=== PATIENT | female | born 1980 ===

== ENCOUNTER 2022-07-27 18:04 | Inpatient (IN) | payer OTHER ==
[~2022-07-27] VITALS: Ht 170.2 cm; Wt 110.7 kg
[2022-07-27] MEDS ORDERED: MAGNESIUM SULFATE 1GM/100ML 200 ML IV ONE (18:30)
[2022-07-27] MEDS ORDERED: PROMETHAZINE HCL 25 MG/ML 1ML ONE (18:31)
[2022-07-27] MEDS ORDERED: MAGNESIUM SULFATE 1GM/100ML 100 ML IV STA (18:31)
[2022-07-27] MEDS ORDERED: AMIODARONE 450mg/250ml AE 250 ML IV ONE (18:38)
[2022-07-27] MEDS ORDERED: ADENOSINE 6 MG/2 ML INJ IV ONE ×2 (18:45)
[2022-07-27] MEDS ORDERED: AMIODARONE HCL 150 MG in D5W 5% 100 ML IV ONE (18:45)
[2022-07-27] MEDS ORDERED: AMIODARONE 450mg/250ml AE 250 ML IV SCH (19:00)
[2022-07-27] MEDS ORDERED: PROMETHAZINE HCL 25 MG/ML 1ML IV ONE (19:30)
[2022-07-27] MEDS ORDERED: SODIUM CHLORIDE 0.9% 1,000 ML IV ONE (19:30)
[2022-07-27] MEDS ORDERED: KETAMINE HCL 10 ML ONE (19:37)
[2022-07-27] MEDS ORDERED: KETAMINE 50mg/ML 10ml Vial (500mg/10ml) IV ONE (19:45)
[2022-07-27 19:54] LABS: Urine Bacteria FEW /hpf (None Seen); Urine Blood Negative /uL (Negative); Urine Specific Gravity 1.004 (1.001-1.035); Urine WBC <1 /hpf (0 - 5)
[2022-07-27 20:18] LABS: Basophils # (auto) 0.1 10 ^3/uL (0-0.2); Basophils % (auto) 1.3 % (0.0-2.0); Eosinophils # (auto) 0 10 ^3/uL (0-0.8); Eosinophils % (auto) 0.6 % (0.0-7.0); Hematocrit 31.6 % (36.0-46.0); Hemoglobin 9.7 g/dL (12.2-16.2); Lymphocytes # (auto) 2.4 10 ^3/uL (0.4-5.4); Lymphocytes % (auto) 33.3 % (10.0-50.0); Mean Corpuscular Hemoglobin 17.7 pg (28.0-32.0); Mean Corpuscular Hgb Conc. 30.6 g/dL (32.0-36.0); Mean Corpuscular Volume 57.7 fL (80.0-100.0); Monocytes # (auto) 0.8 10 ^3/uL (0-1.3); Monocytes % (auto) 11.4 % (0.0-12.0); Neutrophils # (auto) 3.9 10 ^3/uL (1.6-8.6); Neutrophils % (auto) 53.4 % (37.0-80.0); Nucleated Red Blood Cells % 0.2 %; Red Blood Cells 5.49 10^6/uL (4.0-5.20); Red Cell Distribution Width 18.3 % (11.8-14.3); White Blood Cell 7.3 10^3/uL (4.4-10.8)
[2022-07-27 20:34] LABS: Albumin 3.8 g/dL (3.4-5.0); BUN/Creatinine Ratio 14.1; Calcium 9.1 mg/dL (8.5-10.1)
[2022-07-27 20:38] LABS: Bilirubin, Total 0.4 mg/dL (0.2-1.0)
[2022-07-27] MEDS ORDERED: MORPHINE SULFATE INJ 2 MG/ml SYRG IV PRN ×2 (21:45→23:00)
[2022-07-27] MEDS ORDERED: SODIUM CHLORIDE 0.9% 1,000 ML IV SCH (21:45)
[2022-07-27] MEDS ORDERED: DOCUSATE SOD 100 MG CAP PO PRN (21:45)
[2022-07-27] MEDS ORDERED: HYDROcodone-ACET 5/325MG TAB PO PRN (21:45)
[2022-07-27] MEDS ORDERED: AMIODARONE HCL 200 MG TAB PO SCH (22:00)
[2022-07-27] MEDS ORDERED: NITROGLYCERIN 0.4 MG SL TAB SL PRN (23:00)
[2022-07-28] MEDS: AMIODARONE 450mg/250ml AE 250 ML IV SCH ×2 (00:30→16:47)
[2022-07-28 06:12] LABS: Basophils # (auto) 0 10 ^3/uL (0-0.2); Eosinophils # (auto) 0 10 ^3/uL (0-0.8); Eosinophils % (auto) 0.1 % (0.0-7.0); Hemoglobin 8.6 g/dL (12.2-16.2); Lymphocytes # (auto) 1.6 10 ^3/uL (0.4-5.4); Monocytes # (auto) 0.8 10 ^3/uL (0-1.3); Monocytes % (auto) 12.6 % (0.0-12.0); Nucleated Red Blood Cells % 0.1 %
[2022-07-28 06:15] LABS: Basophils % (auto) 0.5 % (0.0-2.0); Hematocrit 28.7 % (36.0-46.0); Lymphocytes % (auto) 24.2 % (10.0-50.0); Mean Corpuscular Hemoglobin 17.9 pg (28.0-32.0); Mean Corpuscular Volume 59.6 fL (80.0-100.0); Neutrophils # (auto) 4.1 10 ^3/uL (1.6-8.6); Neutrophils % (auto) 62.6 % (37.0-80.0); Red Blood Cells 4.81 10^6/uL (4.0-5.20); Red Cell Distribution Width 18.2 % (11.8-14.3); White Blood Cell 6.5 10^3/uL (4.4-10.8)
[2022-07-28 06:16] LABS: Albumin 3.2 g/dL (3.4-5.0); Calcium 8.5 mg/dL (8.5-10.1); Potassium 3.6 mmol/L (3.5-5.1)
[2022-07-28 06:20] LABS: BUN/Creatinine Ratio 13.1; Bilirubin, Total 0.7 mg/dL (0.2-1.0); Total Protein 7.9 g/dL (6.4-8.2)
[2022-07-28] MEDS ORDERED: ASPirin 81 mg TAB PO SCH (10:00)
[2022-07-28] MEDS ORDERED: dilTIAZem 25 MG/5 ML VIAL IV PRN (10:00)
[2022-07-28] MEDS: ENOXAPARIN SOD 40 MG/0.4 ML SYRINGE SC SCH (10:31)
[2022-07-28] MEDS: FAMOTIDINE (10MG/ML) 2ML VL IV SCH (10:33)
[2022-07-28] MEDS: dilTIAZem HCL 60 MG TAB GT SCH ×3 (10:33→22:03)
[2022-07-28] MEDS: AMIODARONE HCL 200 MG TAB PO SCH ×2 (14:40→22:03)
[2022-07-29] MEDS: hydrALAZINE HCL 20 MG/ML VL IV PRN ×3 (00:38→10:47)
[2022-07-29 02:16] VITALS: BP 167/99
[2022-07-29 05:00] VITALS: BP 172/106
[2022-07-29] MEDS: dilTIAZem HCL 60 MG TAB GT SCH ×3 (05:29→21:21)
[2022-07-29] MEDS: AMIODARONE HCL 200 MG TAB PO SCH ×3 (05:30→21:20)
[2022-07-29] MEDS: AMIODARONE 450mg/250ml AE 250 ML IV SCH (06:30)
[2022-07-29] MEDS: ONDANSETRON HCL 4 MG/2 ML VIAL IV PRN ×2 (07:49→12:16)
[2022-07-29 08:32] LABS: Potassium 3.7 mmol/L (3.5-5.1)
[2022-07-29 08:36] LABS: BUN/Creatinine Ratio 13.7; Calcium 8.7 mg/dL (8.5-10.1); Magnesium 1.9 mg/dL (1.6-2.6)
[2022-07-29 08:45] VITALS: BP 152/102
[2022-07-29] MEDS: FAMOTIDINE (10MG/ML) 2ML VL IV SCH (10:47)
[2022-07-29] MEDS: ENOXAPARIN SOD 40 MG/0.4 ML SYRINGE SC SCH (10:48)
[2022-07-29] MEDS: ACETAMINOPHEN 325 MG TAB PO PRN ×2 (12:20→21:20)
[2022-07-29 13:00] VITALS: BP 178/98
[2022-07-29] MEDS ORDERED: NIFEdipine ER 30 MG TAB PO ONE (14:00)
[2022-07-29] MEDS ORDERED: cloNIDine HCL 0.1 MG TAB PO ONE (14:00)
[2022-07-29 17:12] VITALS: BP 142/92
[2022-07-29] MEDS ORDERED: DILT240C59 PO (17:39)
[2022-07-29] MEDS ORDERED: ASPI1TAB20 PO (17:39)
[2022-07-29] MEDS ORDERED: NIFE1TAB30 PO (17:39)
[2022-07-29] MEDS ORDERED: AMIO200T33 PO ×2 (17:39)
[2022-07-30] MEDS ORDERED: NIFEdipine ER 30 MG TAB PO SCH (10:00)
== END 2022-07-29 21:44 | disposition home or self-care (01) | DRG 309 ==
LOC: ER 18:04 → TELE 22:56 → TELE-WESTW 07-29 01:24
PROVIDERS: ADMIT Nurse Practitioner Family; ATTEND Internal Medicine Geriatric Medicine
PROC: 5A2204Z Restoration of Cardiac Rhythm, Single (ICD-10-PCS; principal; 2022-07-27)
DX: I47.1 Supraventricular tachycardia (principal); E44.1 Mild protein-calorie malnutrition; D50.9 Iron deficiency anemia, unspecified; D75.839 Thrombocytosis, unspecified; I10 Essential (primary) hypertension; I16.0 Hypertensive urgency; E66.9 Obesity, unspecified; Z20.822 Contact with and (suspected) exposure to COVID-19; I47.20 Ventricular tachycardia, unspecified; I48.91 Unspecified atrial fibrillation; Z68.38 Body mass index [BMI] 38.0-38.9, adult; Z79.899 Other long term (current) drug therapy
CPT/HCPCS: 36415; 71045; 80048; 80053; 81001; 82270; 83735; 84484; 85025; 87426; 93005; 93306; 96360; 99151; G0378; J2405; J3490; J7060